=== PATIENT | female | born 1980 | race Caucasian/White ===

== ENCOUNTER → 2020-08-15 09:43 | Outpatient (BNVA) | payer MEDICAID, SELFPAY | PROVIDERS: PCP Nurse Practitioner; Referring Provider Nurse Practitioner; Visit Provider Urology | DX: N36.9 Urethral disorder, unspecified (principal); R82.71 Bacteriuria; N30.80 Other cystitis without hematuria; R33.9 Retention of urine, unspecified; N82.1 Other female urinary-genital tract fistulae; N39.46 Mixed incontinence; N81.9 Female genital prolapse, unspecified | CPT/HCPCS: 81003; 87077; 87086; 87184 ==

== ENCOUNTER 2020-09-29 14:56 | Emergency (ER) | payer MEDICAID, SELFPAY ==
[2020-09-29 15:37] VITALS: BP 120/80; PULSE 80; RESP 16; TEMP 36.6; O2SAT 98; BMI 36.0
--- NOTE | 2020-09-29 15:44 | ECG_ITS ---
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 Measurements Intervals [place] Rate: 75 P: 58 MS: 153 QRS: 55 QRSD: 88 T: 46 QT: 377 QTc: 421 Interpretive Statements SINUS RHYTHM No previous ECG available for comparison Electronically Signed On 09-29-2020 18:08:41 CDT by Favio Maza M.D. [id number] f
[2020-09-29 18:00] VITALS: BP 141/79; PULSE 72; RESP 15; TEMP 36.8; O2SAT 99
--- NOTE | 2020-09-29 18:09 | XRR_ITS ---
PROCEDURE INFORMATION: Exam: XR Chest Exam date and time: 09/29/2020 6:09 PM Age: 40 years old Clinical indication: Cough and shortness of breath; Additional info: CHARLENE Brandt TECHNIQUE: Imaging protocol: XR of the chest. Views: 1 view. COMPARISON: No relevant prior studies available. FINDINGS: Lungs: Unremarkable. No consolidation. Pleural spaces: Unremarkable. No pleural effusion. No pneumothorax. Heart/Mediastinum: Unremarkable. No cardiomegaly. Bones/joints: Unremarkable. XR/XR chest 1V portable [id number] IMPRESSION: No acute findings.
--- NOTE | 2020-09-29 18:09 | ECG_ITS ---
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 Measurements Intervals [place] Rate: 74 P: 60 KS: 132 QRS: 58 QRSD: 94 T: 49 QT: 376 QTc: 418 Interpretive Statements SINUS RHYTHM Nonspecific T wave changes in the anterior leads Compared to ECG 09/29/2020 15:56:26 No significant changes Electronically Signed On 10-01-2020 0:28:55 CDT by Marcelina Gilbert M.D. [id number] f
[2020-09-29 18:30] VITALS: BP 130/112; PULSE 91; RESP 17; O2SAT 100
--- NOTE | 2020-09-29 18:42 | W.ED.CHESTPA ---
HPI - Chest Pain General: Chief Complaint: Chest Pain Stated Complaint: Chest Pain Time Seen by Provider: 09/29/20 18:08 Source: patient and RN notes reviewed Mode of arrival: ambulatory Limitations: no limitations History of Present Illness: HPI narrative: Patient is a 40-year-old female who presents to the emergency department with chest pain that started about noon earlier today. Pain is in her upper chest and radiates to her back. She was seen for the same symptoms about a month ago and was evaluated discharged home. She denies any cardiac history. MD complaint: chest pain Onset (ago): hour(s) (6) Timing of current episode: constant Prior episodes: Yes Onset: during rest Pain location: substernal Pain radiation: back Severity: mild Quality: heaviness Relieving factors: nothing Exacerbating factors: nothing Associated symptoms: Deny abdominal pain, diaphoresis, dyspnea, fever(s), leg edema, nausea, palpitations, sense of impending doom, syncope or vomiting Treatment prior to arrival: none Review of Systems General: Reports: 10 or more systems reviewed and unremarkable except in HPI and below Const: Denies: fever(s) or diaphoresis Card: Denies: palpitations or syncope Resp: Denies: dyspnea GI: Denies: abdominal pain, nausea or vomiting PFS ED PFSH: Medical History Cystitis cystica Mixed urinary incontinence due to female genital prolapse Urethrovaginal fistula Family History Mother Hypertension Diabetes Social History Smoking and tobacco status: current every day smoker Alcohol intake: never Marital status: Current occupational status: employed History of recent travel: No Physical Exam Const: COMMON NORMALS: no acute distress, average body habitus, patient oriented x3, no limitations, healthy appearing, alert and well nourished HENMT: COMMON NORMALS: normocephalic, atraumatic and moist oral mucous membranes HEAD & SCALP: normocephalic and atraumatic Neck/C-Spine: COMMON NORMALS: no meningeal signs and no JVD Chest: COMMONS NORMALS: normal inspection of the chest and normal palpation of entire chest wall Resp: COMMON NORMALS: normal respiratory effort, No retractions, No use of accessory muscles, clear to auscultation bilaterally and percussion normal AUSCULTATION: clear to auscultation bilaterally PERCUSSION: percussion normal Cardio: COMMON NORMALS: no JVD, regular rate, regular rhythm, S1 normal heart sound present, S2 normal heart sound present, No gallops present (Cardio), No clicks present (Cardio), No murmurs present (Cardio), No rub (Cardio) and Peripheral pulses 2+ throughout RATE: regular rate RHYTHM: regular rhythm HEART SOUNDS: S1 normal heart sound present and S2 normal heart sound present PERIPHERAL PULSES: Peripheral pulses 2+ throughout GI: COMMON NORMALS: Normal to inspection, nondistended, normoactive bowel sounds present, Soft to palpation, non-tender, No hepatosplenomegaly present, no masses and no bruits PALPATION: Yes Soft to palpation and Yes No hepatosplenomegaly present Extremity: COMMON NORMALS: normal to inspection, full ROM, capillary refill normal, no calf tenderness and no pedal edema Neuro: COMMON NORMALS: patient oriented x3 SENSORIUM/ORIENTATION: Yes alert MENINGEAL SIGNS: Yes no meningeal signs Course Reevaluation(s): Reevaluation #1: Discussed her lab and imaging findings with her. Unremarkable. She is discharged with no new orders. Time: 22:16 Vital Signs: Vital signs: Vital Signs Temperature 98.4 F 09/29/20 18:45 Pulse Rate 76 09/29/20 22:27 Respiratory Rate 19 H 09/29/20 22:27 Blood Pressure 127/74 09/29/20 22:27 Pulse Oximetry 99 09/29/20 22:27 MDM - Chest Pain MDM Narrative: Medical decision making narrative: 40-year-old female patient who presents to the emergency department with chest pain. Evaluation in the emergency department is unremarkable with negative high-sensitivity troponin x2. Heart score is 0. She is discharged home with no new orders. Medical Records: Attestation: I reviewed the patient's medical records. Lab Data: Attestation: I reviewed the patient's lab results. Labs: Lab Results 09/29/20 09/29/20 09/29/20 Range/Units 18:57 18:57 18:57 WBC 16.8 H (4.0-10.0) 10^3/ uL RBC 4.90 (4.1-5.3) 10^6/u L Hgb 14.2 (11.5-15.3) g/dL Hct 44.7 (37.0-47.0) % MCV 91.2 (81-99) fL MCH 29.0 (28.0-34.0) pg MCHC 31.8 (30.0-36.0) g/dL RDW 15.4 H (12.1-15.1) % Plt Count 410 H (130-400) 10^3/c mm MPV 10.3 (7.4-10.4) fL Neut % (Auto) 46.6 % Lymph % (Auto) 46.5 % Rankin % (Auto) 4.9 % Eos % (Auto) 1.3 % Baso % (Auto) 0.4 % Neut # (Auto) 7.86 H (1.8-7.7) 10^3/u L Lymph # (Auto) 7.8 H (0.8-4.8) 10^3/u L Rankin # (Auto) 0.8 (0.2-0.9) 10^3/u L Eos # (Auto) 0.2 (0.0-0.8) 10^3/u L Baso # (Auto) 0.1 (0.0-0.1) 10^3/u L Nucleated RBC % (a uto) 0 % Nucleated RBCs # 0.0 /100WBC PT Cancelled INR Cancelled D-Dimer Cancelled Sodium Cancelled Potassium Cancelled Chloride Cancelled Carbon Dioxide Cancelled Anion Gap Cancelled BUN Cancelled Creatinine Cancelled GFR Calculation Cancelled Glucose Cancelled Calculated Osmolal ity Cancelled Calcium Cancelled Total Bilirubin Cancelled AST Cancelled ALT Cancelled Alkaline Phosphata se Cancelled Troponin T Baselin e Troponin T 120 Min little [place] tribe (0-10) ng/L Delta Troponin T (0-10) ABS# NT-Pro-B Natriuret Pep Cancelled Total Protein Cancelled Albumin Cancelled Globulin Cancelled Lipase Cancelled 09/29/20 09/29/20 09/29/20 Range/Units 18:57 19:21 19:21 WBC (4.0-10.0) 10^3/ uL RBC (4.1-5.3) 10^6/u L Hgb (11.5-15.3) g/dL Hct (37.0-47.0) % MCV (81-99) fL MCH (28.0-34.0) pg MCHC (30.0-36.0) g/dL RDW (12.1-15.1) % Plt Count (130-400) 10^3/c mm MPV (7.4-10.4) fL Neut % (Auto) % Lymph % (Auto) % Rankin % (Auto) % Eos % (Auto) % Baso % (Auto) % Neut # (Auto) (1.8-7.7) 10^3/u L Lymph # (Auto) (0.8-4.8) 10^3/u L Rankin # (Auto) (0.2-0.9) 10^3/u L Eos # (Auto) (0.0-0.8) 10^3/u L Baso # (Auto) (0.0-0.1) 10^3/u L Nucleated RBC % (a uto) % Nucleated RBCs # /100WBC PT 13.70 INR 1.02 D-Dimer <= 0.27 Sodium Potassium Chloride Carbon Dioxide Anion Gap BUN Creatinine GFR Calculation Glucose Calculated Osmolal ity Calcium Total Bilirubin AST ALT Alkaline Phosphata se Troponin T Baselin e Cancelled 6 Troponin T 120 Min [place] (0-10) ng/L Delta Troponin T (0-10) ABS# NT-Pro-B Natriuret Pep Total Protein Albumin Globulin Lipase 09/29/20 09/29/20 Range/Units 19:21 21:17 WBC (4.0-10.0) 10^3/ uL RBC (4.1-5.3) 10^6/u L Hgb (11.5-15.3) g/dL Hct (37.0-47.0) % MCV (81-99) fL MCH (28.0-34.0) pg MCHC (30.0-36.0) g/dL RDW (12.1-15.1) % Plt Count (130-400) 10^3/c mm MPV (7.4-10.4) fL Neut % (Auto) % Lymph % (Auto) % Rankin % (Auto) % Eos % (Auto) % Baso % (Auto) % Neut # (Auto) (1.8-7.7) 10^3/u L Lymph # (Auto) (0.8-4.8) 10^3/u L Rankin # (Auto) (0.2-0.9) 10^3/u L Eos # (Auto) (0.0-0.8) 10^3/u L Baso # (Auto) (0.0-0.1) 10^3/u L Nucleated RBC % (a uto) % Nucleated RBCs # /100WBC PT INR D-Dimer Sodium 141 Potassium 4.1 Chloride 108 H Carbon Dioxide 22 Anion Gap 15.1 BUN 9 Creatinine 0.6 GFR Calculation 109.6 Glucose 84 Calculated Osmolal ity 290 Calcium 8.7 Total Bilirubin 0.3 AST 12 ALT 9 Alkaline Phosphata se 78 Troponin T Baselin e Troponin T 120 Min little [place] 6.00 (0-10) ng/L Delta Troponin T 0 (0-10) ABS# NT-Pro-B Natriuret Pep 103 Total Protein 6.3 L Albumin 4.0 Globulin 2.3 Lipase 29 Imaging Data^: CXR: Attestation: I personally reviewed and interpreted this imaging study as follows: Radiologist's impression: [address] [id number] ReportSigned Patient: Aneesh Vasquez #: [id number]: 1980Acct#:[id number]/Sex: 40 / FADM Date: 09/29/20[facility]/Bed:Attending Dr: Ordering Provider/Ordering MD: Kay Holden MD, [facility] Date of Service: 09/29/20 Procedure(s): XR chest 1V portable [id number] Accession Number(s): [id number] Report Number: [id number] PROCEDURE INFORMATION: Exam: XR Chest Exam date and time: 09/29/2020 6:09 PM Age: 40 years old Clinical indication: Cough and shortness of breath; Additional info: Cp, SOB TECHNIQUE: Imaging protocol: XR of the chest. Views: 1 view. COMPARISON: No relevant prior studies available. FINDINGS: Lungs: Unremarkable. No consolidation. Pleural spaces: Unremarkable. No pleural effusion. No pneumothorax. Heart/Mediastinum: Unremarkable. No cardiomegaly. Bones/joints: Unremarkable. XR/XR chest 1V portable [id number] IMPRESSION: No acute findings. Dictated By:Andrez Gaspar DOSigned By:Andrez Gaspar DOSigned Date/Time:09/29/201DD/ EKG Data^: EKG 1: Attestation: I personally reviewed and interpreted this EKG as follows: EKG interpretation date: 09/29/20 EKG interpretation time: 18:41 Prior EKG tracings: not available for review Interpretation: Sinus rhythm. Heart rate 74 bpm. Normal axis. No ST changes. EKG 2: Attestation: I personally reviewed and interpreted this EKG as follows: EKG interpretation date: 09/29/20 EKG interpretation time: 20:17 Prior EKG tracings: available for review Interpretation: Sinus rhythm. Heart rate 78 bpm. Normal axis. No significant change from earlier today. No ST changes. Discharge Plan Discharge Patient Disposition: Home Clinical Impression: Non-cardiac chest pain Condition: Stable Prescriptions: Continued acetaminophen 500 mg capsule 500 mg PO Q6H PRN (Reason: Pain) RF: 0 ibuprofen 600 mg tablet 600 mg PO Q8H PRN (Reason: pain/fever) RF: 0 Zyrtec 10 mg capsule 10 mg PO DAILY PRN (Reason: Allergy Symptoms) RF: 0 diphenhydramine HCl [Benadryl] 25 mg capsule 25 mg PO TID PRN (Reason: unknown) RF: 0 gabapentin 300 mg capsule 300 mg PO TID RF: 0 cyclobenzaprine 10 mg tablet 10 mg PO BID PRN (Reason: muscle spasms) RF: 0 amoxicillin-pot clavulanate 875-125 mg tablet 1 tab PO BID Qty: 60 RF: 2 Prevacid 30 mg Capsule,Delayed Release(Dr/Ec) 30 mg PO DAILY RF: 0 Discharge Orders: Discharge ED (Routine); Ordered 09/29/20 Ordered By: Kay Holden Referrals: Walker Dumas, [employer] [Primary Care Provider] - 1-3 days Discharge Diet: Usual diet Discharge Activity: Increase activity as tolerated Patient Instructions: Noncardiac Chest Pain (ED) Activity Restrictions/Additional Instructions: Return for any new or worsening symptoms. Follow-up with your primary care provider within 3 days. Continue your home medications. Coding Level of Care Code ED Cane Weigher for Staci Bill
[2020-09-29 18:45] VITALS: BP 130/112; PULSE 74; RESP 16; TEMP 36.9; O2SAT 100
[2020-09-29 19:03] LABS: Basophils # 0.1 10^3/uL (0.0-0.1); Basophils % 0.4 %; Eosinophils # 0.2 10^3/uL (0.0-0.8); Eosinophils % 1.3 %; Hematocrit 44.7 % (37.0-47.0); Hemoglobin 14.2 g/dL (11.5-15.3); Lymphocytes # 7.8 10^3/uL (0.8-4.8); Lymphocytes % 46.5 %; Mean Corpuscular HGB Conc 31.8 g/dL (30.0-36.0); Mean Corpuscular Volume 91.2 fL (81-99); Mean Platelet Volume 10.3 fL (7.4-10.4); Monocytes # 0.8 10^3/uL (0.2-0.9); Monocytes % 4.9 %; Neutrophils # 7.86 10^3/uL (1.8-7.7); Neutrophils % 46.6 %; Nucleated Red Blood Cells % 0 %; Platelet Count 410 10^3/cmm (130-400); Positive M 1; Red Cell Distribution Width 15.4 % (12.1-15.1); White Blood Count 16.8 10^3/uL (4.0-10.0)
[2020-09-29 19:24] LABS: Slide Review Slide Review Perform
[2020-09-29 19:47] VITALS: BP 122/76; PULSE 83; RESP 21; O2SAT 100
[2020-09-29 19:52] LABS: INR 1.02 (0.8-1.2)
[2020-09-29 19:55] LABS: D Dimer <= 0.27 ug/mIFEU (0-0.59)
[2020-09-29 20:01] LABS: Troponin(5th) Baseline 6 ng/L (0-10)
[2020-09-29 20:09] LABS: Alanine Aminotransferase 9 U/L (0-33); Alkaline Phosphatase 78 IU/L (35-105); Anion Gap 15.1 (5-19); Aspartate Amino Transferase 12 U/L (0-32); Blood Urea Nitrogen 9 mg/dL (6-20); Calcium 8.7 mg/dL (8.5-10.5); Carbon Dioxide 22 mmol/L (22-29); Chloride 108 mmol/L (98-107); Globulin 2.3 g/dL (1.3-4.6); Glomerular Filtration Rate 109.6 mL/min (90-130); Glucose 84 mg/dL (65-115); Lipase 29 U/L (13-60); NT Pro B Type Natriuretic Pept 103 pg/mL (0-125); Osmolality Calculated 290 mOsm/kg (285-295); Potassium 4.1 mmol/L (3.5-5.1); Sodium 141 mmol/L (136-145); Total Bilirubin 0.3 mg/dL (0.15-1.2); Total Protein 6.3 g/dL (6.6-8.7)
--- NOTE | 2020-09-29 20:09 | ECG_ITS ---
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 Measurements Intervals [place] Rate: 78 P: 53 ME: 159 QRS: 55 QRSD: 92 T: 42 QT: 382 QTc: 436 Interpretive Statements SINUS RHYTHM Compared to ECG 09/29/2020 15:56:26 No significant changes Electronically Signed On 10-01-2020 0:34:24 CDT by Marcelina Gilbert M.D. [id number]
[2020-09-29 22:00] LABS: Troponin 5 2HR Delta 0 ABS# (0-10)
[2020-09-29 22:27] VITALS: BP 127/74; PULSE 76; RESP 19; O2SAT 99
== END 2020-09-29 22:28 | disposition home or self-care (01) ==
PROVIDERS: Emergency Provider Family Medicine; PCP Nurse Practitioner
DX: R07.89 Other chest pain (principal); F17.210 Nicotine dependence, cigarettes, uncomplicated
CPT/HCPCS: 71045; 80053; 83690; 83880; 84484; 85025; 85378; 85610; 93005; 99284

== ENCOUNTER 2020-10-29 23:09 | Emergency (ER) | payer MEDICAID, SELFPAY ==
[2020-10-29 23:13] VITALS: BP 125/79; PULSE 94; RESP 18; TEMP 37.3; O2SAT 97; BMI 34.7
--- NOTE | 2020-10-29 23:39 | W.ED.SKABFB ---
HPI - Skin/Abscess/Foreign Bdy General: Chief complaint: Skin/Abscess/Foreign Body Stated complaint: Spider Bite Time Seen by Provider: 10/29/20 23:39 History of Present Illness: HPI narrative: 40-year-old female comes in with a insect bite to her right inner thigh. Patient reports increased redness and spreading of the redness to the area. Patient was concerned that it may be a insect bite such as a spider. Patient denies any fever or pain. Review of Systems General: Reports: 10 or more systems reviewed and unremarkable except in HPI and below Skin/Breast: Reports: changing lesions PFSH ED PFSH: Medical History (Reviewed 09/29/20 @ 22:36 by Kay Holden MD, [facility] [place]) Cystitis cystica Mixed urinary incontinence due to female genital prolapse Urethrovaginal fistula Family History (Reviewed 09/29/20 @ 22:36 by Kay Holden MD, [facility] [place]) Mother Hypertension Diabetes Social History (Reviewed 09/29/20 @ 22:36 by Kay Holden MD, [facility] [place]) Smoking and tobacco status: current every day smoker Alcohol intake: never Marital status: Current occupational status: employed History of recent travel: No Physical Exam Const: COMMON NORMALS: no acute distress and patient oriented x3 GENERAL APPEARANCE: cooperative HENMT: COMMON NORMALS: normocephalic and Normal external nose present HEAD & SCALP: normal to inspection and normocephalic NOSE: Normal external nose present MOUTH: Normal oral and palatal mucosa present Eye: GENERAL EYE: appearance normal, both eyes and all related structures Neck/C-Spine: COMMON NORMALS: full ROM Chest: COMMONS NORMALS: normal inspection of the chest Resp: COMMON NORMALS: normal respiratory effort EFFORT & INSPECTION: Yes able to speak in complete sentences Cardio: COMMON NORMALS: regular rate and regular rhythm RATE: regular rate RHYTHM: regular rhythm GI: COMMON NORMALS: non-tender Extremity: COMMON NORMALS: normal to inspection Neuro: COMMON NORMALS: patient oriented x3 and moves all extremities Psych: COMMON NORMALS: mental status grossly normal and cooperative Skin: NARRATIVE SKIN EXAM: 2 cm ecchymotic/erythematous lesion to the right inner thigh. Course Vital Signs: Vital signs: Vital Signs Temperature 99.2 F 10/29/20 23:13 Pulse Rate 94 10/29/20 23:13 Respiratory Rate 18 10/29/20 23:13 Blood Pressure 125/79 10/29/20 23:13 Pulse Oximetry 97 10/29/20 23:13 MDM - Skin/Abscess/Foreign Bdy MDM Narrative: Medical decision making narrative: 40-year-old female comes in with a changing lesion to the right inner thigh. On exam there is a 2 cm area of ecchymosis with mild redness to the inner thigh. No induration or fluctuant masses noted. Differential diagnosis includes folliculitis, abscess, local reaction to insect bite. Will place patient on some triamcinolone and Bactrim to cover for a probable insect bite. Reviewed this with patient who agreed to plan and treatment. Discharge Plan Discharge Patient Disposition: Home Clinical Impression: Infected insect bite Qualifiers: Encounter type: initial encounter Qualified Code(s): W57.XXXA - Bitten or stung by nonvenomous insect and other nonvenomous arthropods, initial encounter Condition: Stable Prescriptions: New Bactrim DS 800-160 mg tablet 1 tab PO DAILY 7 Days Qty: 14 RF: 0 triamcinolone acetonide 0.1 % cream 1 applic topical BID Qty: 15 RF: 0 No Action acetaminophen 500 mg capsule 500 mg PO Q6H PRN (Reason: Pain) RF: 0 ibuprofen 600 mg tablet 600 mg PO Q8H PRN (Reason: pain/fever) RF: 0 Zyrtec 10 mg capsule 10 mg PO DAILY PRN (Reason: Allergy Symptoms) RF: 0 diphenhydramine HCl [Benadryl] 25 mg capsule 25 mg PO TID PRN (Reason: unknown) RF: 0 gabapentin 300 mg capsule 300 mg PO TID RF: 0 cyclobenzaprine 10 mg tablet 10 mg PO BID PRN (Reason: muscle spasms) RF: 0 amoxicillin-pot clavulanate 875-125 mg tablet 1 tab PO BID Qty: 60 RF: 2 Prevacid 30 mg Capsule,Delayed Release(Dr/Ec) 30 mg PO DAILY RF: 0 Discharge Orders: Discharge ED (Routine); Ordered 10/29/20 Ordered By: Aidan Molina Discharge Diet: Usual diet Discharge Activity: Increase activity as tolerated Patient Instructions: Insect Bite or Sting (ED), Opioid Safety Activity Restrictions/Additional Instructions: Follow-up with primary care. Monitor area for worsening symptoms. Return to the ER for new concerns. Coding Level of Care Code ED Photonics Technician for Staci Bill
[2020-10-30] MEDS: sulfamethoxazole-trimeth DS 160-800 mg Tablet 1 TAB PO (00:07)
[2020-10-30] MEDS: triamcinolone 0.1% cream 15 gm 1 APPLIC TOPICAL (00:13)
== END 2020-10-30 00:14 | disposition home or self-care (01) ==
PROVIDERS: Emergency Provider Nurse Practitioner Family
DX: L98.9 Disorder of the skin and subcutaneous tissue, unspecified (principal); F17.200 Nicotine dependence, unspecified, uncomplicated
CPT/HCPCS: 99283

== ENCOUNTER 2020-11-13 21:18 | Emergency (ER) | payer MEDICAID, SELFPAY ==
--- NOTE | 2020-11-13 21:27 | XRR_ITS ---
PROCEDURE INFORMATION: Exam: XR Chest Exam date and time: 11/13/2020 9:27 PM Age: 40 years old Clinical indication: Left-sided; Patient HX: Sudden onset chest pain tonight radiating to left shoulder; Additional info: Cp TECHNIQUE: Imaging protocol: XR of the chest. Views: 1 view. Total images: 1 COMPARISON: CR (CHEST, ) 09/29/2020 6:26 PM FINDINGS: Lungs: No visible active interstitial or alveolar airspace disease. Pleural spaces: Unremarkable. No pleural effusion. No pneumothorax. Heart/Mediastinum: Unremarkable. No cardiomegaly. Bones/joints: Unremarkable. Soft tissues: Heavy body habitus. XR/XR chest 1V portable [id number] IMPRESSION: Nonacute.
[2020-11-13 21:30] VITALS: BP 139/84; PULSE 99; RESP 16; TEMP 36.9; O2SAT 96; BMI 34.7
--- NOTE | 2020-11-13 21:54 | ED_ITS ---
HPI - Chest Pain General: Chief Complaint: Chest Pain Stated Complaint: chest pain left shoulder Time Seen by Provider: 11/13/20 21:46 Source: patient Mode of arrival: ambulatory Limitations: no limitations History of Present Illness: HPI narrative: 40-year-old female states she was eating roughly an hour ago when she stood up she had a sudden onset of very sharp chest pain in the center of her chest. States it also radiated to her left shoulder. She states that since then the pain is improved and is currently 2 out of 10. Denies any nausea or vomiting. She denies any worsening improving factors. Denies any cough or fever. Associated symptoms: Deny abdominal pain, dyspnea, fever(s), nausea or vomiting Review of Systems Const: Denies: fever(s), chills, body aches or change in appetite Eyes: Denies: blurry vision or eye discomfort ENMT: Denies: throat pain or dental pain Card: Reports: chest pain Resp: Denies: dyspnea GI: Denies: abdominal pain, nausea, vomiting or diarrhea : Denies: dysuria Musc: Denies: neck pain or back pain Skin/Breast: Denies: rash Neuro: Denies: headache(s) Psych: Denies: depression Abel/Lymph: Denies: easy bruising All/Imm: Denies: urticaria PFSH ED PFSH: Medical History Cystitis cystica Mixed urinary incontinence due to female genital prolapse Urethrovaginal fistula Family History Mother Hypertension Diabetes Social History Smoking and tobacco status: current every day smoker Alcohol intake: never Marital status: Current occupational status: employed History of recent travel: No Female Reproductive History: Date of last menstrual period: 11/02/20 Physical Exam Const: COMMON NORMALS: no acute distress, patient oriented x3 and healthy appearing HENMT: COMMON NORMALS: normocephalic and atraumatic HEAD & SCALP: normocephalic and atraumatic Eye: COMMON NORMALS: Equal, round and reactive pupils present and EOMs intact bilaterally PUPIL: Yes Equal, round and reactive pupils present Neck/C-Spine: COMMON NORMALS: full ROM and supple Chest: COMMONS NORMALS: normal inspection of the chest and normal palpation of entire chest wall Resp: COMMON NORMALS: normal respiratory effort, No retractions, No use of accessory muscles and clear to auscultation bilaterally AUSCULTATION: clear to auscultation bilaterally Cardio: COMMON NORMALS: regular rate, regular rhythm and No murmurs present (Cardio) RATE: regular rate RHYTHM: regular rhythm GI: COMMON NORMALS: Normal to inspection, nondistended, normoactive bowel sounds present, Soft to palpation, non-tender and no masses PALPATION: Yes Soft to palpation Extremity: COMMON NORMALS: normal to inspection and full ROM Neuro: COMMON NORMALS: patient oriented x3, moves all extremities and no focal motor deficits Psych: COMMON NORMALS: mental status grossly normal, Normal thought process present and cooperative THOUGHT PROCESS: Normal thought process present Skin: COMMON NORMALS: no rashes or lesions noted and no wounds GENERAL SKIN EXAM: no rashes or lesions noted Course Vital Signs: Vital signs: Vital Signs Temperature 98.4 F 11/13/20 21:30 Pulse Rate 70 11/14/20 01:24 Respiratory Rate 17 11/14/20 01:24 Blood Pressure 119/73 11/14/20 01:24 Pulse Oximetry 98 11/14/20 01:24 MDM - Chest Pain MDM Narrative: Medical decision making narrative: Patient presents here with chest pain that is atypical in nature. Patient is pain-free currently and initial repeat troponins and EKGs are normal. She has no signs of acute coronary syndrome. White count is elevated but she states her white count has been running anywhere from 16-18 and they are working her up for autoimmune diseases. She has no signs of infection here. She is to follow-up with PCP and return if she worsens. She understands agrees to plan. Lab Data: Labs: Lab Results 11/13/20 11/13/20 11/13/20 Range/Units 21:53 21:53 21:53 WBC 16.1 H (4.0-10.0) 10^3/ uL RBC 4.65 (4.1-5.3) 10^6/u L Hgb 13.6 (11.5-15.3) g/dL Hct 42.3 (37.0-47.0) % MCV 91.0 (81-99) fl MCH 29.2 (28.0-34.0) pg MCHC 32.2 (30.0-36.0) g/dL RDW 14.6 (12.1-15.1) % Plt Count 418 H (130-400) 10^3/c mm MPV 9.8 (7.4-10.4) fL Neut % (Auto) 56.7 % Lymph % (Auto) 34.2 % [place] % (Auto) 6.8 % Eos % (Auto) 1.8 % Baso % (Auto) 0.3 % Neut # (Auto) 9.14 H (1.8-7.7) 10^3/u L Lymph # (Auto) 5.5 H (0.8-4.8) 10^3/u L [place] # (Auto) 1.1 H (0.2-0.9) 10^3/u L Eos # (Auto) 0.3 (0.0-0.8) 10^3/u L Baso # (Auto) 0.1 (0.0-0.1) 10^3/u L Nucleated RBC % (a uto) 0 % Nucleated RBCs # 0.0 /100WBC Sodium 139 (136-145) mmol/L Potassium 4.0 (3.5-5.1) mmol/L Chloride 104 (98-107) mmol/L Carbon Dioxide 25 (22-29) mmol/L Anion Gap 14.0 (5-19) BUN 12 (6-20) mg/dL Creatinine 0.7 (0.5-0.9) mg/dL GFR Calculation 91.8 (90-130) mL/min Glucose 101 (65-115) mg/dL Calculated Osmolal ity 288 (285-295) mOsm/k g Calcium 9.1 (8.5-10.5) mg/dL Total Bilirubin 0.2 (0.15-1.2) mg/dL AST 22 (0-32) U/L ALT 17 (0-33) U/L Alkaline Phosphata se 70 (35-105) IU/L Troponin T Baselin e 6 (0-10) ng/L Troponin T 120 Min qagan tayagungin (0-10) ng/L Delta Troponin T (0-10) ABS# Total Protein 6.5 L (6.6-8.7) g/dL Albumin 4.2 (3.5-5.2) g/dL Globulin 2.3 (1.3-4.6) g/dL Lipase 50 (13-60) U/L 11/13/20 11/13/20 Range/Units 21:53 23:46 WBC (4.0-10.0) 10^3/ uL RBC (4.1-5.3) 10^6/u L Hgb (11.5-15.3) g/dL Hct (37.0-47.0) % MCV (81-99) fl MCH (28.0-34.0) pg MCHC (30.0-36.0) g/dL RDW (12.1-15.1) % Plt Count (130-400) 10^3/c mm MPV (7.4-10.4) fL Neut % (Auto) % Lymph % (Auto) % [place] % (Auto) % Eos % (Auto) % Baso % (Auto) % Neut # (Auto) (1.8-7.7) 10^3/u L Lymph # (Auto) (0.8-4.8) 10^3/u L [place] # (Auto) (0.2-0.9) 10^3/u L Eos # (Auto) (0.0-0.8) 10^3/u L Baso # (Auto) (0.0-0.1) 10^3/u L Nucleated RBC % (a uto) % Nucleated RBCs # /100WBC Sodium (136-145) mmol/L Potassium (3.5-5.1) mmol/L Chloride (98-107) mmol/L Carbon Dioxide (22-29) mmol/L Anion Gap (5-19) BUN (6-20) mg/dL Creatinine (0.5-0.9) mg/dL GFR Calculation (90-130) mL/min Glucose (65-115) mg/dL Calculated Osmolal ity (285-295) mOsm/k g Calcium (8.5-10.5) mg/dL Total Bilirubin (0.15-1.2) mg/dL AST (0-32) U/L ALT (0-33) U/L Alkaline Phosphata se (35-105) IU/L Troponin T Baselin e (0-10) ng/L Troponin T 120 Min qagan [place] 6.00 (0-10) ng/L Delta Troponin T 0 (0-10) ABS# Total Protein (6.6-8.7) g/dL Albumin (3.5-5.2) g/dL Globulin (1.3-4.6) g/dL Lipase Cancelled (13-60) U/L Imaging Data^: CXR: Attestation: I personally reviewed and interpreted this imaging study as follows: Radiologist's impression: [id number] [address] XRay Report Signed Patient: Sarai Vasquez Unit #: [id number] : 1980 Age/Sex: 40 / F ADM Date: 11/13/20 Loc: ER Room/Bed: Attending Dr: Ordering Provider/Ordering MD: Ana Anderson MD Date of Service: 11/13/20 Procedure(s): XR chest 1V portable [id number] Accession Number(s): [id number] Report Number: [id number] PROCEDURE INFORMATION: Exam: XR Chest Exam date and time: 11/13/2020 9:27 PM Age: 40 years old Clinical indication: Left-sided; Patient HX: Sudden onset chest pain tonight radiating to left shoulder; Additional info: Cp TECHNIQUE: Imaging protocol: XR of the chest. Views: 1 view. Total images: 1 COMPARISON: CR (CHEST, ) 09/29/2020 6:26 PM FINDINGS: Lungs: No visible active interstitial or alveolar airspace disease. Pleural spaces: Unremarkable. No pleural effusion. No pneumothorax. Heart/Mediastinum: Unremarkable. No cardiomegaly. Bones/joints: Unremarkable. Soft tissues: Heavy body habitus. XR/XR chest 1V portable [id number] IMPRESSION: Nonacute. Dictated By: Sandoval Chavarria Signed By: Sandoval Chavarria Signed Date/Time: 11/13/202201 DD/ 00 EKG Data^: EKG 1: Attestation: I personally reviewed and interpreted this EKG as follows: EKG interpretation date: 11/13/20 EKG interpretation time: 21:34 Interpretation: nsr hr [address] or t wave abnormalities qrs 85 qtc 398 EKG 2: Attestation: I personally reviewed and interpreted this EKG as follows: EKG interpretation date: 11/14/20 EKG interpretation time: 00:45 Interpretation: nsr hr [address] or t wave abnormalities qrs 94 qtc 415 Discharge Plan Discharge Patient Disposition: Home Clinical Impression: Chest pain Qualifiers: Chest pain type: unspecified Qualified Code(s): R07.9 - Chest pain, unspecified Condition: Stable Prescriptions: No Action acetaminophen 500 mg capsule 500 mg PO Q6H PRN (Reason: Pain) RF: 0 ibuprofen 600 mg tablet 600 mg PO Q8H PRN (Reason: pain/fever) RF: 0 Zyrtec 10 mg capsule 10 mg PO DAILY PRN (Reason: Allergy Symptoms) RF: 0 diphenhydramine HCl [Benadryl] 25 mg capsule 25 mg PO TID PRN (Reason: unknown) RF: 0 gabapentin 300 mg capsule 300 mg PO TID RF: 0 cyclobenzaprine 10 mg tablet 10 mg PO BID PRN (Reason: muscle spasms) RF: 0 amoxicillin-pot clavulanate 875-125 mg tablet 1 tab PO BID Qty: 60 RF: 2 Prevacid 30 mg Capsule,Delayed Release(Dr/Ec) 30 mg PO DAILY RF: 0 triamcinolone acetonide 0.1 % cream 1 applic topical BID Qty: 15 RF: 0 Discharge Orders: Discharge ED (Routine); Ordered 11/14/20 Ordered By: Ana Anderson Referrals: Walker Dumas MUSIC THERAPY TEACHER [Primary Care Provider] - 1-3 days Discharge Diet: Advance as tolerated Discharge Activity: Resume usual activity Patient Instructions: Chest Pain (ED) Coding Level of Care Code ED Regional Loss Prevention Manager for Chg Fwd Exam Comprehensive
[2020-11-13 21:56] VITALS: BP 138/82; PULSE 88; RESP 18; O2SAT 98
[2020-11-13 21:59] LABS: Basophils # 0.1 10^3/uL (0.0-0.1); Basophils % 0.3 %; Eosinophils # 0.3 10^3/uL (0.0-0.8); Eosinophils % 1.8 %; Hematocrit 42.3 % (37.0-47.0); Hemoglobin 13.6 g/dL (11.5-15.3); Lymphocytes # 5.5 10^3/uL (0.8-4.8); Lymphocytes % 34.2 %; Mean Corpuscular HGB Conc 32.2 g/dL (30.0-36.0); Mean Corpuscular Hemoglobin 29.2 pg (28.0-34.0); Mean Platelet Volume 9.8 fL (7.4-10.4); Monocytes # 1.1 10^3/uL (0.2-0.9); Monocytes % 6.8 %; Neutrophils # 9.14 10^3/uL (1.8-7.7); Neutrophils % 56.7 %; Nucleated Red Blood Cells % 0 %; Platelet Count 418 10^3/cmm (130-400); Red Blood Count 4.65 10^6/uL (4.1-5.3); Red Cell Distribution Width 14.6 % (12.1-15.1); White Blood Count 16.1 10^3/uL (4.0-10.0)
[2020-11-13] MEDS: ondansetron 2 mg/ML SDV 2 mL 4 MG IVP (22:04)
[2020-11-13 22:08] VITALS: RESP 18; O2SAT 98
[2020-11-13] MEDS: morphine 4 mg/mL SDV 1 mL IVP (22:08)
[2020-11-13 22:17] LABS: Troponin(5th) Baseline 6 ng/L (0-10)
[2020-11-13 22:21] LABS: Alanine Aminotransferase 17 U/L (0-33); Albumin Level 4.2 g/dL (3.5-5.2); Alkaline Phosphatase 70 IU/L (35-105); Aspartate Amino Transferase 22 U/L (0-32); Blood Urea Nitrogen 12 mg/dL (6-20); Calcium 9.1 mg/dL (8.5-10.5); Carbon Dioxide 25 mmol/L (22-29); Chloride 104 mmol/L (98-107); Globulin 2.3 g/dL (1.3-4.6); Glomerular Filtration Rate 91.8 mL/min (90-130); Glucose 101 mg/dL (65-115); Lipase 50 U/L (13-60); Osmolality Calculated 288 mOsm/kg (285-295); Sodium 139 mmol/L (136-145); Total Bilirubin 0.2 mg/dL (0.15-1.2); Total Protein 6.5 g/dL (6.6-8.7)
--- NOTE | 2020-11-13 23:28 | ECG_ITS ---
[facility] Test Date: 2020-11-14 Pat Name: Sarai Vasquez Department: Room: Gender: Female Brim Flexer: : 1980 Requested By: Ana Anderson Order Number: [id number] Joyce MD: Marcelina Gilbert M.D. Measurements Intervals [place] Rate: 68 P: 64 WV: 146 QRS: 64 QRSD: 94 T: 62 QT: 397 QTc: 425 Interpretive Statements SINUS RHYTHM Compared to ECG 09/29/2020 20:17:16 No significant changes Electronically Signed On 11-14-2020 13:08:21 CDT by Marcelina Gilbert M.D. [id number]
[2020-11-13 23:35] VITALS: BP 120/87; PULSE 75; RESP 21; O2SAT 99
[2020-11-14 00:39] LABS: Troponin 5 2HR Delta 0 ABS# (0-10)
[2020-11-14 01:00] VITALS: BP 119/73; PULSE 69; RESP 27; O2SAT 97
[2020-11-14 01:24] VITALS: BP 119/73; PULSE 70; RESP 17; O2SAT 98
== END 2020-11-14 01:25 | disposition home or self-care (01) ==
PROVIDERS: Emergency Provider Emergency Medicine; PCP Nurse Practitioner
DX: R07.9 Chest pain, unspecified (principal); F17.200 Nicotine dependence, unspecified, uncomplicated
CPT/HCPCS: 36415; 71045; 80053; 83690; 84484; 85025; 93005; 96374; 96375; 99284; J2270; J2405

== ENCOUNTER 2020-12-12 12:33 | Outpatient (CLI) | payer MEDICAID, SELFPAY ==
--- NOTE | 2020-12-12 13:01 | MM_ITS ---
WS: [id number] BILATERAL DIGITAL DIAGNOSTIC MAMMOGRAM MAMMOGRAPHY WITH CAD CLINICAL INFORMATION: DISORDER OF BREAST HISTORY: Clear to white discharge left breast COMPARISON: None. TECHNIQUE: Bilateral CC, MLO, and ML views. FINDINGS: Scattered fibroglandular densities bilaterally. Palpable marker at the left areola. No visualized mammographic lesions. Ultrasound left breast is pen ding. 5 mm intramammary lymph node right breast. 8mm asymmetry upper outer right breast best visualized on the MLO view. Recommend spot compression views and ultrasound for further evaluation. ULTRASOUND BREAST LEFT TECHNIQUE: Ultrasound left breast focused area of concern. CLINICAL INFORMATION: DISORDER OF BREAST COMPARISON: None. FINDINGS: Ultrasound left breast circumferential about the areola. No visualized subareolar cystic or solid mas s. No intraductal lesions. No ductal dilatation. No suspicious findings. MM/[place] [id number] IMPRESSION: BI-RADS: 0-Incomplete: Need additional imaging evaluation FOLLOW UP: Need Additional Imaging Recommend right breast diagnostic mammography and ultrasound for further evalua tion of the asymmetric density upper outer right breast
--- NOTE | 2020-12-12 13:34 | US_ITS ---
WS: [id number] BILATERAL DIGITAL DIAGNOSTIC MAMMOGRAM MAMMOGRAPHY WITH CAD CLINICAL INFORMATION: DISORDER OF BREAST HISTORY: Clear to white discharge left breast COMPARISON: None. TECHNIQUE: Bilateral CC, MLO, and ML views. FINDINGS: Scattered fibroglandular densities bilaterally. Palpable marker at the left areola. No visualized mammographic lesions. Ultrasound left breast is pen ding. 5 mm intramammary lymph node right breast. 8mm asymmetry upper outer right breast best visualized on the MLO view. Recommend spot compression views and ultrasound for further evaluation. ULTRASOUND BREAST LEFT TECHNIQUE: Ultrasound left breast focused area of concern. CLINICAL INFORMATION: DISORDER OF BREAST COMPARISON: None. FINDINGS: Ultrasound left breast circumferential about the areola. No visualized subareolar cystic or solid mas s. No intraductal lesions. No ductal dilatation. No suspicious findings. US/US breast LT limited* [id number] IMPRESSION: BI-RADS: 0-Incomplete: Need additional imaging evaluation FOLLOW UP: Need Additional Imaging Recommend right breast diagnostic mammography and ultrasound for further evalua tion of the asymmetric density upper outer right breast
== END 2020-12-12 12:34 | disposition home or self-care (01) ==
LOC: RADSHAW 12:40
PROVIDERS: PCP Nurse Practitioner; Visit Provider Nurse Practitioner
DX: N64.89 Other specified disorders of breast (principal)
CPT/HCPCS: 76642; 77066

== ENCOUNTER 2021-01-09 08:00 | Outpatient (CLI) | payer MEDICAID, SELFPAY ==
--- NOTE | 2021-01-09 08:08 | MM_ITS ---
WS: [id number] RIGHT DIGITAL MAMMOGRAPHY WITH CAD CLINICAL INFORMATION: INCONCLUSIVE MAMMOGRAM COMPARISON: December 12, 2020 TECHNIQUE: 4 views of the right breast were obtained. FINDINGS: Scattered fibroglandular densities of the right breast. Persistent 8 mm asymmetry upper outer right b reast. Adjacent 5 mm intramammary lymph node. Ultrasound is pending. MM/[place] [id number] IMPRESSION: BI-RADS: 0-Incomplete: Need additional imaging evaluation FOLLOW UP: Need Additional Imaging ULTRASOUND IS PENDING.
--- NOTE | 2021-01-09 08:08 | US_ITS ---
WS: [id number] Right breast ultrasound, 01/09/2021 Clinical Data: INCONCLUSIVE MAMMOGRAM Comparison: Right breast mammogram, 01/09/2021 Findings: At the 10:00 position 3 cm from the nipple there is a complex cyst measuring 0.51 x 0 6.62 x 0.72 cm with a smooth border and internal echoes. No calcifications are associated with this area. 2 cm from the nipple there is a complex cyst measuring 0.35 x 0.52 x 0.76 cm. At the 11:00 position there are 2 intramedullary lymph nodes, in the axilla, one measuring 1.72 x 0.7 4 x 2.94 cm and the other 0.85 x 0.88 x 1.16 cm. US/US breast RT limited* [id number] Impression: 1. Complex cysts, 2 of them, at the 10:00 position 2 and 3 cm from the nipple. 2. 2 intramammary lymph nodes in the 11:00 position. 3. Recommend return to annual screening mammograms. BIRADS: 2-Benign FOLLOW UP: 1 Year Follow-up
== END 2021-01-09 08:01 | disposition home or self-care (01) ==
LOC: RADSHAW 08:04
PROVIDERS: PCP Nurse Practitioner; Visit Provider Nurse Practitioner
DX: R92.2 Inconclusive mammogram (principal); N60.01 Solitary cyst of right breast
CPT/HCPCS: 76642; 77065

== ENCOUNTER → 2021-01-26 11:12 | Outpatient (BNVA) | payer MEDICAID, SELFPAY | PROVIDERS: PCP Nurse Practitioner; Visit Provider Internal Medicine | DX: Z01.812 Encounter for preprocedural laboratory examination (principal); Z20.822 Contact with and (suspected) exposure to COVID-19 | CPT/HCPCS: 81003; 87635 ==

== ENCOUNTER 2021-02-02 08:08 | Day surgery (SDC) | payer MEDICAID, SELFPAY ==
[2021-01-28 14:35] VITALS: BMI 36.0
--- NOTE | 2021-02-02 07:55 | W.PM.OPSFHP ---
Same Day Surgery H&P Indication for Procedure/HPI DATE OF PROCEDURE: February 02, 2021 CHIEF COMPLAINT/INDICATIONFOR SURGICAL PROCEDURE: Chronic reflux and a history of polyp PREOP DIAGNOSIS: Chronic reflux and history of polyps PLANNED PROCEDRUE: Operation Date: 02/02/21 09:45 Proposed Procedures p EGD/Colon 04748 R19.8(Not Applicable) - Killian Gill MD s Colonoscopy 66076 Z86.010(Not Applicable) - Killian Gill MD Medications/Allergies* Home Medications Medication Instructions Recorded Confirmed Type acetaminophen 500 mg capsule 500 mg PO Q6H PRN 08/15/20 01/28/21 History cetirizine 10 mg capsule 10 mg PO DAILY PRN 08/15/20 01/28/21 History diphenhydramine HCl 25 mg capsule 25 mg PO TID PRN 08/15/20 01/28/21 History ibuprofen 600 mg tablet 600 mg PO Q8H PRN 08/15/20 01/26/21 History famotidine 40 mg tablet 40 mg PO BID 01/22/21 01/28/21 History gabapentin 300 mg capsule 600 mg PO TID cap 01/22/21 01/26/21 History omeprazole 40 mg capsule,delayed 40 mg PO BID 01/22/21 01/26/21 History release albuterol sulfate 90 mcg/actuation 2 puff INHALATION Q6H PRN 01/26/21 01/28/21 History aerosol inhaler cholecalciferol (vitamin D3) 625 625 mcg PO .weekly cap 01/26/21 01/28/21 History mcg (25,000 unit) capsule duloxetine 30 mg capsule,delayed 30 mg PO DAILY 01/26/21 01/28/21 History release fluticasone 250 mcg-salmeterol 50 1 inh INHALATION BID 01/26/21 01/28/21 History mcg/dose blistr powdr for inhalation Allergies/Adverse Reactions Allergy/AdvReac Type Severity Reaction Status Date / Time codeine Allergy Unknown Verified 01/26/21 09:00 tramadol Allergy Unknown Verified 01/26/21 09:00 SHELL FISH Allergy DIARRHEA, Uncoded 01/26/21 09:00 NAUSEA, ITCHY THROAT, SWEATING Pertinent History/Comorbid Conditions* Medical History (Updated 01/23/21 @ 11:49 by Lorna Mack MD) Cystitis cystica Dyspareunia Generalized anxiety disorder GERD (gastroesophageal reflux disease) Microscopic hematuria Mixed urinary incontinence due to female genital prolapse Ophthalmoplegic migraine, not intractable Periurethral cyst PTSD (post-traumatic stress disorder) [place]'s gland abscess [place] gland removed--04/10/2019 Urethrovaginal fistula Urinary frequency Urinary urgency Surgical History (Updated 01/22/21 @ 14:34 by Lorna Mack MD) History of tonsillectomy History of tubal ligation Family History (Updated 01/22/21 @ 14:15 by Verito Pearce LPN) Diabetes Mother Grandmother Maternal CAD (coronary artery disease) Grandfather Maternal Cancer Mother lung and bone cancer Grandfather Paternal--brain cancer twice Father bladder cancer Hypertension Mother Grandfather Maternal Stroke Grandfather, Onset Age: 50 Maternal Denies family history of Clotting disorder Chronic kidney disease (CKD) Bleeding disorder Social History Alcohol intake: never Marital status: Current occupational status: unemployed History of recent travel: No Pertinent Exam Findings alert, oriented x 3, clear to auscultation bilaterally, regular rate & rhythm, operative site marked and procedure specific exam findings Recommendations Surgery/Procedure today Coding Level of Care Code Acute Floral Design Teacher for Garyg Landy
[2021-02-02 09:08] VITALS: BP 155/79; PULSE 77; RESP 16; TEMP 36.4; O2SAT 100
[2021-02-02] MEDS: sodium chloride 0.9% 1,000 ML 30 ML IV (09:20)
--- NOTE | 2021-02-02 09:29 | P.ANESASSM_ITS ---
Pre-Anesthetic Assessment Pre-Anesthetic Assessment: Height/Weight: Height 1.57 m Weight 89.358 kg Temp Pulse Resp BP Pulse Ox 97.5 F L 77 16 155/79 100 02/02/21 09:08 02/02/21 09:08 02/02/21 09:08 02/02/21 09:08 02/02/21 09:08 Preop Diagnosis: Gerd, Polyps Proposed Procedure: Operation Date: 02/02/21 09:45 Proposed Procedures p EGD/Colon 46553 R19.8(Not Applicable) - Killian Gill MD s Colonoscopy 73079 Z86.010(Not Applicable) - Killian Gill MD Was Beta Page taken within 24 hours: N/A Was Clonidine taken within 24 hours: N/A Last intake: Intake Last Liquid Date 02/01/21 Last Liquid Time 00:00 Last Solid Date 01/31/21 Last Solid Time 00:00 Social: Social History: No alcohol and No tobacco Exam: Pre-Anes Outpt Exam: alert, oriented x 3 and regular rate & rhythm Airway: Submandibular: WNL Cervical ROM: WNL MP: 2 Dentition: Chipped Additional comments: Very poor dentition Pulmonary: Pulmonary: Asthma and COPD GI: GI: GERD Neuropsych: Neuropsych: Anxiety and Depression Anesthetic Plan: ASA status: 3 Anesthesia: MAC Risk of > 500 ml blood loss (7ml/kg in children): No Meds/Allergies Current Medications: Current Medications Generic Name Dose Route Start Last Admin Trade Name Freq PRN Reason Stop Dose Admin Sodium Chloride 1,000 mls @ 30 ml s/hr 02/02/21 08:45 02/02/21 09:20 Sodium Chloride 0.9% IV 02/03/21 08:44 30 mls/hr .Q24H FERNANDO Administration PFSH Anesthesia PFSH: Medical History Cystitis cystica Dyspareunia Generalized anxiety disorder GERD (gastroesophageal reflux disease) Microscopic hematuria Mixed urinary incontinence due to female genital prolapse Ophthalmoplegic migraine, not intractable Periurethral cyst PTSD (post-traumatic stress disorder) [place]'s gland abscess [place] gland removed--04/10/2019 Urethrovaginal fistula Urinary frequency Urinary urgency Surgical History History of tonsillectomy History of tubal ligation Family History Mother Hypertension Diabetes Cancer lung and bone cancer Grandfather CAD (coronary artery disease) Maternal Hypertension Maternal Stroke, Onset Age: 50 Maternal Cancer Paternal--brain cancer twice Father Cancer bladder cancer Grandmother Diabetes Maternal Denies family history of Clotting disorder Chronic kidney disease (CKD) Bleeding disorder Social History Alcohol intake: never Marital status: Current occupational status: unemployed History of recent travel: No Female Reproductive History: Date of last menstrual period: 11/02/20 Data Anesthesia Cardiac Studies: No Data to Display
[2021-02-02 11:13] VITALS: BP 88/49; PULSE 76; RESP 16; TEMP 36.1; O2SAT 98
[2021-02-02 11:42] VITALS: BP 117/80; PULSE 78; RESP 16; O2SAT 100
--- NOTE | 2021-02-02 11:54 | ANE.PACU2 ---
Inpatient post-anesthesia follow up: Airway intact: Yes Vital signs: Temperature 97 F Pulse Rate 78 Respiratory Rate 16 Blood Pressure 117/80 Pulse Oximetry 100 Oxygen Delivery Me thod Room Air Oxygen Flow Rate Fraction of Inspir ed Oxygen Hydration adequate: Yes Mental status: Baseline
== END 2021-02-02 11:55 | disposition home or self-care (01) ==
PROVIDERS: PCP Nurse Practitioner; Visit Provider Internal Medicine
PROC: 0DJ08ZZ Inspection of Upper Intestinal Tract, Via Natural or Artificial Opening Endoscopic (ICD-10-PCS; CPT 43235; principal; 2021-02-02 09:45)
PROC: 0DJD8ZZ Inspection of Lower Intestinal Tract, Via Natural or Artificial Opening Endoscopic (ICD-10-PCS; CPT 45378; 2021-02-02 09:45)
DX: R12 Heartburn (principal); K22.2 Esophageal obstruction; Z86.010 Personal history of colon polyps; Z88.5 Allergy status to narcotic agent
CPT/HCPCS: 43235; 45378; 96360; 96361; J2704; J7030

== ENCOUNTER → 2021-02-03 15:27 | Outpatient (BNVA) | payer MEDICAID, SELFPAY | PROVIDERS: PCP Nurse Practitioner; Visit Provider Obstetrics & Gynecology | DX: N81.10 Cystocele, unspecified (principal) | CPT/HCPCS: 76830 ==

== ENCOUNTER → 2021-02-20 14:59 | Outpatient (BNVA) | payer MEDICAID, SELFPAY | PROVIDERS: PCP Nurse Practitioner; Visit Provider Obstetrics & Gynecology | DX: N81.4 Uterovaginal prolapse, unspecified (principal); R10.2 Pelvic and perineal pain | CPT/HCPCS: 87635 ==

== ENCOUNTER 2021-02-24 10:07 | Observation (INO) | payer MEDICAID, SELFPAY ==
[2021-02-23 14:07] VITALS: BMI 36.2
[2021-02-24] VITALS (14 sets, daily range): BP systolic 119–148; BP diastolic 52–97; PULSE 68–88; RESP 14–24; TEMP 36.7–37.2; O2SAT 93–100
[2021-02-24] MEDS: sodium chloride 0.9% 1,000 ML 30 ML IV (06:26)
[2021-02-24] MEDS: acetaminophen 1,000 MG/100 ML PIGGYBACK 400 MG IV (06:26)
[2021-02-24] MEDS: gabapentin 300 mg Capsule PO (06:42)
[2021-02-24] MEDS: phenazopyridine 100 mg Tablet 200 MG PO ×2 (06:42→18:00)
[2021-02-24] MEDS: CELEcoxib 200 mg Capsule 400 MG PO (06:42)
--- NOTE | 2021-02-24 06:54 | P.ANESASSM_ITS ---
Pre-Anesthetic Assessment Pre-Anesthetic Assessment: Height/Weight: Height 1.57 m Weight 89.811 kg Temp Pulse Pulse Ox 98.1 F 81 100 02/24/21 06:26 02/24/21 06:26 02/24/21 06:26 Preop Diagnosis: Uterine prolapse Proposed Procedure: Operation Date: 02/24/21 07:00 Proposed Procedures p Laparoscopic Assist Vaginal Hysterectomy 13027 N81.4 R10.2(Not Applicable) - Lorna Mack MD s Laparoscopic Salpingectomy(Bilateral) - Lorna Mack MD Was Beta Page taken within 24 hours: N/A Was Clonidine taken within 24 hours: N/A Last intake: Intake Last Liquid Date 02/23/21 Last Liquid Time 23:30 Last Solid Date 02/23/21 Last Solid Time 18:00 Social: Social History: Tobacco Packs per day: 0.5 to 1 PPD Pack years: Can't remember how long Exam: Pre-Anes Outpt Exam: alert, oriented x 3, clear to auscultation bilaterally and regular rate & rhythm Airway: Submandibular: WNL Cervical ROM: WNL MP: 3 Dentition: Partials History/ROS: No significant history except as noted Pulmonary: Pulmonary: COPD and ARREDONDO CV/HEM: Comments: ARREDONDO less than 4 METS : Comments: Urethrovaginal fistula, cystitis, urinary frequency Hepatic: Hepatic: None reported GI: GI: GERD Metabolic: Metabolic: None reported Musc/skel: Musc/skel: None reported Neuropsych: Comments: PTSD Anesthetic Plan: ASA status: 3 (Daily smoker with ARREDONDO) Anesthesia: An esthesia Evaluation and General Risk of > 500 ml blood loss (7ml/kg in children): No Meds/Allergies Current Medications: Current Medications Generic Name Dose Route Start Last Admin Trade Name Freq PRN Reason Stop Dose Admin Sodium Chloride 1,000 mls @ 30 ml s/hr 02/24/21 06:00 02/24/21 06:26 Sodium Chloride 0.9% IV 02/25/21 05:59 30 mls/hr .Q24H FERNANDO Administration PFSH Anesthesia PFSH: Medical History Cystitis cystica Dyspareunia Generalized anxiety disorder GERD (gastroesophageal reflux disease) Microscopic hematuria Mixed urinary incontinence due to female genital prolapse Ophthalmoplegic migraine, not intractable Periurethral cyst PTSD (post-traumatic stress disorder) [place]'s gland abscess [place] gland removed--04/10/2019 Urethrovaginal fistula Urinary frequency Urinary urgency Surgical History History of tonsillectomy History of tubal ligation Family History Mother Hypertension Diabetes Cancer lung and bone cancer Grandfather CAD (coronary artery disease) Maternal Hypertension Maternal Stroke, Onset Age: 50 Maternal Cancer Paternal--brain cancer twice Father Cancer bladder cancer Grandmother Diabetes Maternal Denies family history of Clotting disorder Chronic kidney disease (CKD) Bleeding disorder Social History Alcohol intake: never Marital status: Current occupational status: unemployed History of recent travel: No Female Reproductive History: Date of last menstrual period: 02/17/21 Data Anesthesia Cardiac Studies: No Data to Display
[2021-02-24 07:00] LABS: OR HCG Qualitative Urine Negative (Negative)
--- NOTE | 2021-02-24 07:03 | W.PM.OPSUD ---
Surgery/Procedure H&P Update DATE OF PROCEDURE: February 24, 2021 DATE H&P PERFORMED: 01/22/21 H&P UPDATE INFORMATION: I have reviewed H&P completed within last 30 days, I have examined patient prior to procedure and No changes to prior documentation PREOP DIAGNOSIS: Uterine prolapse PLANNED PROCEDURE: Operation Date: 02/24/21 07:00 Proposed Procedures p Laparoscopic Assist Vaginal Hysterectomy 29647 N81.4 R10.2(Not Applicable) - Lorna Mack MD s Laparoscopic Salpingectomy(Bilateral) - Lorna Mack MD Related Problem List Diagnoses (1) Uterine prolapse: (2) Painful defecation: (3) Mixed urinary incontinence due to female genital prolapse: (4) Urethrovaginal fistula:
[2021-02-24 07:33] LABS: Basophils # 0.1 10^3/uL (0.0-0.1); Basophils % 0.4 %; Eosinophils # 0.5 10^3/uL (0.0-0.8); Eosinophils % 3.1 %; Hematocrit 40.3 % (37.0-47.0); Hemoglobin 13.2 g/dL (11.5-15.3); Lymphocytes % 47.7 %; Mean Corpuscular HGB Conc 32.8 g/dL (30.0-36.0); Mean Corpuscular Hemoglobin 29.9 pg (28.0-34.0); Mean Corpuscular Volume 91.4 fl (81-99); Mean Platelet Volume 10.4 fL (7.4-10.4); Monocytes # 0.9 10^3/uL (0.2-0.9); Monocytes % 5.9 %; Neutrophils # 6.22 10^3/uL (1.8-7.7); Neutrophils % 42.6 %; Nucleated Red Blood Cells % 0 %; Platelet Count 422 10^3/cmm (130-400); Red Blood Count 4.41 10^6/uL (4.1-5.3); Red Cell Distribution Width 13.6 % (12.1-15.1); White Blood Count 14.6 10^3/uL (4.0-10.0)
[2021-02-24 07:43] LABS: Anion Gap 17.2 (5-19); Blood Urea Nitrogen 12 mg/dL (6-20); Calcium 8.1 mg/dL (8.5-10.5); Carbon Dioxide 20 mmol/L (22-29); Chloride 105 mmol/L (98-107); Glomerular Filtration Rate 109.6 mL/min (90-130); Glucose 101 mg/dL (65-115); Osmolality Calculated 286 mOsm/kg (285-295); Potassium 4.2 mmol/L (3.5-5.1); Sodium 138 mmol/L (136-145)
[2021-02-24] MEDS: vasopressin 20 unit/mL INJ (08:18)
--- NOTE | 2021-02-24 08:19 | SUR.OPER ---
Called and notified him or surgical start and progress.
--- NOTE | 2021-02-24 10:20 | P.OP_ITS ---
Operative Report Date of procedure: February 24, 2021 Pre-op Diagnosis: Uterine prolapse Post-op diagnosis: same Post-op Diagnosis: loose perineal body Post-op Findings: 8 week sized uterus, normal appearing tubes and ovaries with obvious previous tubal ligation. proximal urethral fistula. (area of previous skene's gland removal goes all the way to urethra and harrington catheter is visible) Loose perineal body. grade 1-2 rectocele, grade 1 cystocele. Procedure Done: laparoscopic assisted vaginal hysterectomy with bilateral salpingectomy and perineorrhaphy. Specimens removed/disposition: uterus and bilateral fallopian tubes sent to pathology Surgeon: Lorna Mack Anesthesia: General Estimated blood loss (mL): 50 IV fluids (mL): 1,700 Urine output (mL): 100 Complications: none Findings: 8 week sized uterus, normal appearing tubes and ovaries with obvious previous tubal ligation. proximal urethral fistula. (area of previous skene's gland removal goes all the way to urethra and harrington catheter is visible) Loose perineal body. grade 1-2 rectocele, grade 1 cystocele. Condition: stable Disposition: floor Procedure: The patient was taken to the operating room where general anesthesia was administered and found to be adequate. She was prepped and draped in the normal sterile fashion in the dorsal lithotomy position in [facility]. A Harrington catheter was placed. A weighted speculum was placed into the vagina and the anterior lip of the cervix was grasped with a single tooth tenaculum. The Zumi uterine manipulator was placed. The weighted speculum was removed. The gloves were changed and attention was turned to the abdomen. A 5 mm infraumbilical incision was made. Using a 5 mm port with the camera, the port was placed into the abdomen. The abdomen was insufflated. Two low, lateral 5 mm ports were placed on the left and right under direct visualization from the camera. The right tube was grasped and elevated. Using the laparoscopic cautery, the mesosalpinx was divided between the ovary and tube. The tube was removed. This was performed the same way on the left. The uteroovarian ligaments as well as the round ligaments were ligated. Attention was then turned to the vaginal portion of the procedure. The weighted speculum was placed into the vagina. The zumi manipulator was removed. The single tooth tenaculum was removed and replaced with the carly's tenaculum. 10 mL of dilute Pitressin was injected at the vesicovaginal junction. A circumferential incision was made at the vesicovaginal junction and the vaginal mucosa reflected cephalad. The posterior peritoneum was entered sharply with the Metzenbaum scissors and the long weighted speculum replaced. Using the Tara clamps the uterosacral ligaments were clamped cut and suture- ligated. The anterior peritoneum was entered sharply with the metzenbaum scissors. Then sequentially the uterine arteries and cardinal ligaments were clamped cut and suture-ligated. A single-tooth tenaculum was used to deliver the uterus. The remaining segement of the utero-ovarian ligaments were clamped cut and suture-ligated bilaterally and the specimen was removed. There was good hemostasis with only mild bleeding from the cuff. The peritoneum was closed with a pursestring using 2-0 Vicryl. The vaginal cuff was closed with 0 Vicryl in a running locked pattern incorporating the uterosacral ligaments into the lateral aspects of the vaginal cuff. The Harrington catheter was removed and the cystoscope advanced into the bladder. The patient was given pyridium and bilateral spill was noted. There were no injuries or deficits noted in the bladder. The cystoscope was removed and the Harrington was replaced. Attention was then turned to the perineorrhphy. Allis clamps were placed on the posterior fourchette. A 3 cm wedge of the fourchette was removed. This was repaired in the usual fashion with O-vicryl. Vaginal packing was placed. The patient tolerated the procedure well. Sponge, lap and needle counts were correct times three. She was taken to the recovery room in stable condition.
[2021-02-24] MEDS: fentaNYL 50 mcg/mL INJ 2mL IVP ×2 (10:25→10:30)
[2021-02-24] MEDS: scopolamine 1.5 Patch 1 PATCH TRANSDERMA (10:29)
[2021-02-24] MEDS: dextrose 5%-lactated ringers 1,000 ML 125 ML IV (12:21)
[2021-02-24] MEDS: oxyCODONE-APAP 5-325 mg Tablet 1 TAB PO (15:06)
--- NOTE | 2021-02-24 15:42 | ANE.PACU2 ---
Inpatient post-anesthesia follow up: Vital signs: Temperature 98.9 F Pulse Rate 77 Respiratory Rate 18 Blood Pressure 121/78 Pulse Oximetry 95 Oxygen Delivery Me thod Room Air Oxygen Flow Rate 8 Fraction of Inspir ed Oxygen Hydration adequate: Yes Nausea and vomiting: No Pain level: 4
[2021-02-24] MEDS: ketorolac 30 mg/mL INJ IVP (18:00)
[2021-02-24] MEDS: docusate sodium 100 mg Capsule PO (20:37)
[2021-02-25] MEDS: ketorolac 30 mg/mL INJ IVP (00:13)
[2021-02-25 04:42] VITALS: BP 118/71; PULSE 83; RESP 14; O2SAT 97
[2021-02-25 04:44] LABS: Hemoglobin 12.9 g/dL (11.5-15.3); Mean Corpuscular HGB Conc 32.3 g/dL (30.0-36.0); Mean Corpuscular Hemoglobin 29.5 pg (28.0-34.0); Mean Corpuscular Volume 91.5 fl (81-99); Mean Platelet Volume 9.8 fL (7.4-10.4); Platelet Count 384 10^3/cmm (130-400); Red Blood Count 4.37 10^6/uL (4.1-5.3); Red Cell Distribution Width 13.6 % (12.1-15.1); White Blood Count 21.5 10^3/uL (4.0-10.0)
--- NOTE | 2021-02-25 08:53 | P.DS_ITS ---
Discharge Providers Date of Admission: 02/24/21 10:07 Date of Discharge: February 25, 2021 Attending Provider at Admission: Lorna Mack MD Attending Provider at Discharge: Lorna Mack MD Primary Care Provider: ANGELICA Rushing Diagnoses at Discharge Discharge Diagnosis (1) Uterine prolapse: Status: Acute (2) Painful defecation: Status: Acute (3) Mixed urinary incontinence due to female genital prolapse: Status: Acute (4) Urethrovaginal fistula: Status: Acute Reason for Visit Reason for Visit: Uterine prolapse Hospital Course Hospital Course The patient was admitted for surgery. She did well postoperatively and was ready for discharge on day #1 Physical Exam 2 Narrative: EXAM NARRATIVE: The patient is doing well this morning. Pain is well controlled. Packing has been removed. Const: COMMON NORMALS: no acute distress, patient oriented x3, no limitations, healthy appearing, alert and well nourished GENERAL APPEARANCE: cooperative, comfortable, well kempt and well developed ORIENTATION/CONSCIOUSNESS: Yes awake, Yes oriented to person, Yes oriented to place and Yes oriented to time Resp: COMMON NORMALS: normal respiratory effort EFFORT & INSPECTION: Yes able to speak in complete sentences GI: COMMON NORMALS: Soft to palpation and non-tender PALPATION: Yes Soft to palpation : COMMON NORMALS: Yes normal external appearance and Yes normal appearance of the vagina Extremity: COMMON NORMALS: no calf tenderness Neuro: COMMON NORMALS: patient oriented x3 SENSORIUM/ORIENTATION: Yes alert, Yes oriented to person, Yes oriented to place and Yes oriented to time Psych: APPEARANCE: Yes well kempt Urinary Catheter Management^: Tate: Cath Placed During This Visit: yes, but has since been removed by the nurse Reason for Continuing Indwelling Catheter: Decision to DC Catheter Urinary Catheter Date of Insertion: 02/24/21 Urinary Catheter Time of Insertion: 07:54 Date Urinary Catheter Removed: 02/25/21 Time Urinary Catheter Discontinued: 04:30 Discharge Data Data Completed and Pending: Pending at discharge Category Date Time Status ES surgery / GI i mages Routine Exams 02/24/21 06:49 Taken Comprehensive Met abolic Panel AM BRIGETTE SCHULTZ Lab 02/25/21 04:00 Ordered Urine Culture Rou josefina Lab 02/24/21 06:20 Received Pathology: Surgic al [PTH] Routine Pth 02/24/21 10:15 Received Labs from last 24 hours 02/25/21 04:35 WBC 21.5 H RBC 4.37 Hgb 12.9 Hct 40.0 MCV 91.5 MCH 29.5 MCHC 32.3 RDW 13.6 Plt Count 384 MPV 9.8 Vitals: Last Vital Signs Temp 98.2 F 02/24/21 18:05 Pulse 83 02/25/21 04:42 Resp 14 02/25/21 04:42 BP 118/71 02/25/21 04:42 Pulse Ox 97 02/25/21 04:42 Discharge Plan Discharge Patient Disposition: Home Condition: Stable Prescriptions: New ibuprofen 800 mg Tablet 800 mg PO Q8H Qty: 30 RF: 0 oxycodone-acetaminophen 5-325 mg Tablet 1 tab PO Q4H PRN (Reason: Moderate Pain) Qty: 30 RF: 0 docusate sodium 100 mg Capsule 100 mg PO BID Qty: 60 RF: 0 Continued acetaminophen 500 mg capsule 500 mg PO Q6H PRN (Reason: Pain) RF: 0 Zyrtec 10 mg capsule 10 mg PO DAILY PRN (Reason: Allergy Symptoms) RF: 0 diphenhydramine HCl [Benadryl] 25 mg capsule 25 mg PO TID PRN (Reason: unknown) RF: 0 gabapentin 300 mg capsule 600 mg PO TID PRN (Reason: pain) RF: 0 cholecalciferol (vitamin D3) 625 mcg (25,000 unit) capsule 625 mcg PO .weekly RF: 0 albuterol sulfate 90 mcg/actuation HFA aerosol inhaler 2 puff inhalation Q6H PRN (Reason: Shortness Of Breath) RF: 0 Discharge Orders: Discharge Order (Routine); Ordered 02/25/21 Ordered By: Lorna Mack Patient Instructions: Opioid Safety Discharge Attestations Time Spent in Discharge Care*: less than 30 min Quality Metrics Clinical Quality Measures During this hospital stay, did patient experience: None Coding Level of Care Code Acute Chg FW MO note Diagnoses Uterine prolapse N81.4 Painful defecation R19.8 Mixed urinary incontinence due to female genital prolapse N39.46; N81.9 Urethrovaginal fistula N82.1
[2021-02-25 09:45] VITALS: BP 122/74; PULSE 75; RESP 17; TEMP 36.7; O2SAT 95
[2021-02-25 09:50] VITALS: RESP 16; O2SAT 95
[2021-02-25] MEDS: oxyCODONE-APAP 5-325 mg Tablet 1 TAB PO (09:50)
[2021-02-25] MEDS: ibuprofen 800 mg tablet PO (09:51)
== END 2021-02-25 09:55 | disposition home or self-care (01) ==
LOC: OBGYN 10:08
PROVIDERS: Admitting Provider Obstetrics & Gynecology; PCP Nurse Practitioner; Visit Provider Obstetrics & Gynecology
PROC: 0UT9FZZ Resection of Uterus, Via Natural or Artificial Opening With Percutaneous Endoscopic Assistance (ICD-10-PCS; CPT 56810; principal; 2021-02-24 07:00)
PROC: (CPT 58661; 2021-02-24 07:00)
DX: N82.1 Other female urinary-genital tract fistulae (principal); N81.9 Female genital prolapse, unspecified; N81.4 Uterovaginal prolapse, unspecified; N30.90 Cystitis, unspecified without hematuria; R10.2 Pelvic and perineal pain; N39.46 Mixed incontinence; R19.8 Other specified symptoms and signs involving the digestive system and abdomen; J44.9 Chronic obstructive pulmonary disease, unspecified; F43.10 Post-traumatic stress disorder, unspecified; F17.210 Nicotine dependence, cigarettes, uncomplicated
CPT/HCPCS: 56810; 58552; 36415; 80048; 81025; 84703; 85025; 85027; 87086; 88305; 96365; G0378; J0690; J1100; J1170; J1200; J1885; J2250; J2405; J2704; J2710; J3010; J3490; J7030

== ENCOUNTER 2021-03-01 19:11 | Emergency (ER) | payer MEDICAID, SELFPAY ==
[2021-03-01 19:32] VITALS: BP 127/79; PULSE 85; RESP 18; TEMP 36.7; O2SAT 98; BMI 36.6
[2021-03-01 19:36] VITALS: BP 127/79; PULSE 80; RESP 18; TEMP 36.7; O2SAT 98
--- NOTE | 2021-03-01 19:37 | ECG_ITS ---
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 Measurements Intervals [place] Rate: 55 P: 58 [place]: 145 QRS: 53 QRSD: 93 T: 51 QT: 410 QTc: 395 Interpretive Statements SINUS BRADYCARDIA Compared to ECG 11/14/2020 00:45:40 Sinus rhythm no longer present Electronically Signed On 03-02-2021 20:44:48 PRINT BINDING WORKER by Marcelina Gilbert M.D. [id number] f
[2021-03-01 19:47] LABS: Basophils # 0.1 10^3/uL (0.0-0.1); Basophils % 0.3 %; Eosinophils # 0.5 10^3/uL (0.0-0.8); Hemoglobin 13.4 g/dL (11.5-15.3); Lymphocytes # 5.6 10^3/uL (0.8-4.8); Lymphocytes % 36.7 %; Mean Corpuscular HGB Conc 32.7 g/dL (30.0-36.0); Mean Corpuscular Hemoglobin 29.5 pg (28.0-34.0); Mean Corpuscular Volume 90.3 fl (81-99); Mean Platelet Volume 9.7 fL (7.4-10.4); Monocytes # 1.1 10^3/uL (0.2-0.9); Monocytes % 7.3 %; Neutrophils # 7.98 10^3/uL (1.8-7.7); Neutrophils % 52.4 %; Nucleated Red Blood Cells % 0 %; Platelet Count 449 10^3/cmm (130-400); Red Blood Count 4.54 10^6/uL (4.1-5.3); Red Cell Distribution Width 13.9 % (12.1-15.1); White Blood Count 15.2 10^3/uL (4.0-10.0)
[2021-03-01 20:01] LABS: Troponin(5th) Baseline 6 ng/L (0-10)
[2021-03-01 20:02] LABS: Alanine Aminotransferase 17 U/L (0-33); Albumin Level 3.9 g/dL (3.5-5.2); Alkaline Phosphatase 88 IU/L (35-105); Anion Gap 16.1 (5-19); Aspartate Amino Transferase 11 U/L (0-32); Blood Urea Nitrogen 11 mg/dL (6-20); Calcium 8.8 mg/dL (8.5-10.5); Carbon Dioxide 22 mmol/L (22-29); Chloride 104 mmol/L (98-107); Globulin 2.2 g/dL (1.3-4.6); Glomerular Filtration Rate 109.6 mL/min (90-130); Glucose 87 mg/dL (65-115); Osmolality Calculated 285 mOsm/kg (285-295); Potassium 4.1 mmol/L (3.5-5.1); Sodium 138 mmol/L (136-145); Total Bilirubin 0.2 mg/dL (0.15-1.2); Total Protein 6.1 g/dL (6.6-8.7)
--- NOTE | 2021-03-01 20:06 | ED_ITS ---
HPI - Chest Pain General: Chief Complaint: Chest Pain Stated Complaint: Chest Pains\Dizzy\N\Headache Time Seen by Provider: 03/01/21 19:52 History of Present Illness: HPI narrative: Patient is a 40-year-old female comes to the ED with chest pain. Patient says symptoms started approximately 3 days ago. Says she was laying down after she had a meal and she felt the pain in the center part of her chest and it radiated to her back. The pain has been pretty consistent since it started 3 days ago and she denies any worsening or relieving factors. She says the chest pain also has a feeling of some chest tightness especially with breathing. Patient did just have a hysterectomy done approximately 5 days ago and is been resting since surgery. Patient admits to being a daily tobacco smoker. Associated symptoms: Reports dyspnea; Deny abdominal pain, fever(s), nausea, palpitations or vomiting Review of Systems Const: Denies: fever(s), chills or fatigue Eyes: Denies: change in vision or eye discomfort ENMT: Denies: throat pain, odynophagia, nasal discharge or nasal congestion Card: Reports: chest pain; Denies: palpitations, edema, swelling of feet/ankles, dyspnea on exertion or orthopnea Resp: Reports: dyspnea; Denies: productive cough or non-productive cough GI: Denies: abdominal pain, nausea, vomiting, diarrhea, constipation or hematochezia : Denies: flank pain, dysuria or hematuria Musc: Denies: neck pain, back pain or extremity swelling Skin/Breast: Denies: rash or new lesions Neuro: Denies: headache(s), numbness in extremities or weakness in extremities [facility] ED PFSH: Medical History Cystitis cystica Dyspareunia Generalized anxiety disorder GERD (gastroesophageal reflux disease) Microscopic hematuria Mixed urinary incontinence due to female genital prolapse Ophthalmoplegic migraine, not intractable Periurethral cyst PTSD (post-traumatic stress disorder) [place]'s gland abscess [place] gland removed--04/10/2019 Urethrovaginal fistula Urinary frequency Urinary urgency Surgical History History of tonsillectomy History of tubal ligation Family History Mother Hypertension Diabetes Cancer lung and bone cancer Grandfather CAD (coronary artery disease) Maternal Hypertension Maternal Stroke, Onset Age: 50 Maternal Cancer Paternal--brain cancer twice Father Cancer bladder cancer Grandmother Diabetes Maternal Denies family history of Clotting disorder Chronic kidney disease (CKD) Bleeding disorder Social History Alcohol intake: never Marital status: Current occupational status: unemployed History of recent travel: No Female Reproductive History: Date of last menstrual period: 02/17/21 Physical Exam Const: COMMON NORMALS: no acute distress, patient oriented x3 and alert GENERAL APPEARANCE: cooperative and comfortable HENMT: COMMON NORMALS: normocephalic HEAD & SCALP: normocephalic MOUTH: Normal oral and palatal mucosa present THROAT: posterior oropharynx normal and uvula midline Neck/C-Spine: COMMON NORMALS: supple GENERAL: Yes normal visual inspection Resp: COMMON NORMALS: normal respiratory effort, No retractions, No use of accessory muscles and clear to auscultation bilaterally AUSCULTATION: clear to auscultation bilaterally Cardio: COMMON NORMALS: regular rate, regular rhythm, S1 normal heart sound present, S2 normal heart sound present, No gallops present (Cardio), No clicks present (Cardio), No murmurs present (Cardio) and Peripheral pulses 2+ throughout RATE: regular rate RHYTHM: regular rhythm HEART SOUNDS: S1 normal heart sound present and S2 normal heart sound present PERIPHERAL PULSES: Peripheral pulses 2+ throughout GI: COMMON NORMALS: Normal to inspection, nondistended, normoactive bowel sounds present, Soft to palpation, non-tender and no masses PALPATION: Yes Soft to palpation : COMMON NORMALS: Yes no CVA tenderness BLADDER/KIDNEY EXAM: Yes no CVA tenderness Back/Pelvis: COMMON NORMALS: no CVA tenderness Extremity: COMMON NORMALS: normal to inspection Neuro: COMMON NORMALS: patient oriented x3 and moves all extremities SENSORIUM/ORIENTATION: Yes alert Skin: GENERAL SKIN EXAM: dry skin Course Vital Signs: Vital signs: Vital Signs Temperature 98.1 F 03/01/21 19:36 Pulse Rate 71 03/01/21 22:10 Respiratory Rate 16 03/01/21 22:10 Blood Pressure 135/71 03/01/21 22:10 Pulse Oximetry 98 12/12/21 22:10 MDM - Chest Pain MDM Narrative: Medical decision making narrative: Patient is a 40-year-old fe male comes to the ED with chest pain. Symptoms started approximately 3 days ago. Patient just had a hysterectomy approximately 5 days ago and has been resting and healing since. Vitals stable. Exam is benign. White blood cell count 15.2 but that has decreased from her last white blood cell count of 21.5 on eighth. Rest of CBC and CMP was unremarkable. Troponin negative. D-dimer was normal. EKG showed no ST segment elevation or depression with normal sinus rhythm. Patient's chest pain did improve after getting some morphine and GI cocktail here in the ED. Patient was diagnosed with atypical chest pain I placed an order with case management for patient to receive a outpatient cardiac stress test. Patient she was told to follow-up with her PCP in 5 to 7 days reevaluation, and she has a postsurgical follow-up early this week. Return to ED precautions given. Patient stood agree with plan. Lab Data: Attestation: I reviewed the patient's lab results. Labs: Lab Results 03/01/21 03/01/21 03/01/21 19:30 19:30 19:30 WBC 15.2 10^3/uL H 10 ^3/uL (4.0-10.0) RBC 4.54 10^6/uL 10^6 /uL (4.1-5.3) Hgb 13.4 g/dL g/dL (11.5-15.3) Hct 41.0 % % (37.0-47.0) MCV 90.3 fl fl (81-99) MCH 29.5 pg pg (28.0-34.0) MCHC 32.7 g/dL g/dL (30.0-36.0) RDW 13.9 % % (12.1-15.1) Plt Count 449 10^3/cmm H 10 ^3/cmm (130-400) MPV 9.7 fL fL (7.4-10.4) Neut % (Auto) 52.4 % % Lymph % (Auto) 36.7 % % [place] % (Auto) 7.3 % % Eos % (Auto) 3.0 % % Baso % (Auto) 0.3 % % Neut # (Auto) 7.98 10^3/uL H 10 ^3/uL (1.8-7.7) Lymph # (Auto) 5.6 10^3/uL H 10^ 3/uL (0.8-4.8) [place] # (Auto) 1.1 10^3/uL H 10^ 3/uL (0.2-0.9) Eos # (Auto) 0.5 10^3/uL 10^3/ uL (0.0-0.8) Baso # (Auto) 0.1 10^3/uL 10^3/ uL (0.0-0.1) Nucleated RBC % (a uto) 0 % % Nucleated RBCs # 0.0 /100WBC /100W BC D-Dimer Sodium 138 mmol/L mmol/L (136-145) Potassium 4.1 mmol/L mmol/L (3.5-5.1) Chloride 104 mmol/L mmol/L (98-107) Carbon Dioxide 22 mmol/L mmol/L (22-29) Anion Gap 16.1 (5-19) BUN 11 mg/dL mg/dL (6-20) Creatinine 0.6 mg/dL mg/dL (0.5-0.9) GFR Calculation 109.6 mL/min mL/m in (90-130) Glucose 87 mg/dL mg/dL (65-115) Calculated Osmolal ity 285 mOsm/kg mOsm/ kg (285-295) Calcium 8.8 mg/dL mg/dL (8.5-10.5) Total Bilirubin 0.2 mg/dL mg/dL (0.15-1.2) AST 11 U/L U/L (0-32) ALT 17 U/L U/L (0-33) Alkaline Phosphata se 88 IU/L IU/L (35-105) Troponin T Baselin e 6 ng/L ng/L (0-10) Troponin T 120 Min jean Delta Troponin T Total Protein 6.1 g/dL L g/dL (6.6-8.7) Albumin 3.9 g/dL g/dL (3.5-5.2) Globulin 2.2 g/dL g/dL (1.3-4.6) Lipase 03/01/21 03/01/21 03/01/21 19:35 19:35 21:05 WBC RBC Hgb Hct MCV MCH MCHC RDW Plt Count MPV Neut % (Auto) Lymph % (Auto) [place] % (Auto) Eos % (Auto) Baso % (Auto) Neut # (Auto) Lymph # (Auto) [place] # (Auto) Eos # (Auto) Baso # (Auto) Nucleated RBC % (a uto) Nucleated RBCs # D-Dimer 0.48 ug/mIFEU ug/ mIFEU (0-0.59) Sodium Potassium Chloride Carbon Dioxide Anion Gap BUN Creatinine GFR Calculation Glucose Calculated Osmolal ity Calcium Total Bilirubin AST ALT Alkaline Phosphata se Troponin T Baselin e Troponin T 120 Min jean 6.00 ng/L ng/L (0-10) Delta Troponin T 0 ABS# ABS# (0-10) Total Protein Albumin Globulin Lipase 30 U/L U/L (13-60) EKG Data^: EKG 1: Attestation: I personally reviewed and interpreted this EKG as follows: EKG interpretation date: 03/01/21 Interpretation: Normal sinus rhythm, no ST segment elevation or depression seen. 84 bpm. EKG 2: Attestation: I personally reviewed and interpreted this EKG as follows: EKG interpretation date: 03/01/21 Interpretation: Sinus bradycardia, 55 bpm, no ST segment elevation or depression seen. Discharge Plan Discharge Patient Disposition: Home Clinical Impression: Atypical chest pain Condition: Stable Prescriptions: No Action acetaminophen 500 mg capsule 500 mg PO Q6H PRN (Reason: Pain) RF: 0 Zyrtec 10 mg capsule 10 mg PO DAILY PRN (Reason: Allergy Symptoms) RF: 0 diphenhydramine HCl [Benadryl] 25 mg capsule 25 mg PO TID PRN (Reason: unknown) RF: 0 gabapentin 300 mg capsule 600 mg PO TID PRN (Reason: pain) RF: 0 cholecalciferol (vitamin D3) 625 mcg (25,000 unit) capsule 625 mcg PO .weekly RF: 0 albuterol sulfate 90 mcg/actuation HFA aerosol inhaler 2 puff inhalation Q6H PRN (Reason: Shortness Of Breath) RF: 0 ibuprofen 800 mg Tablet 800 mg PO Q8H Qty: 30 RF: 0 oxycodone-acetaminophen 5-325 mg Tablet 1 tab PO Q4H PRN (Reason: Moderate Pain) Qty: 30 RF: 0 docusate sodium 100 mg Capsule 100 mg PO BID Qty: 60 RF: 0 Discharge Orders: Discharge ED (Routine); Ordered 03/01/21 Ordered By: Rafael Zuniga Referrals: Walker Dumas FNP [Primary Care Provider] - Discharge Diet: Regular Discharge Activity: Resume usual activity Patient Instructions: Chest Pain (ED), Noncardiac Chest Pain (ED) Activity Restrictions/Additional Instructions: Follow-up with medical provider at your next scheduled appointment this week. Continue taking all previously prescribed home medications. Return to the ER or your medical provider if condition worsens. Please read and understand discharge instructions. Thank you for choosing [facility] for your healthcare needs today. Please realize this is an emergency room and that we are providing you with a medical screening exam and this may not be complete and all inclusive of all the testing and or work up that you may need to determine your ailment or severity of your illness. It is very important that you follow up as instructed or that you return to the Emergency Department should you have concerns or if your condition changes or worsens in any way. Coding Level of Care Code ED Report Specialist for Staci Bill Exam Comprehensive
[2021-03-01 20:35] VITALS: RESP 20; O2SAT 99
[2021-03-01] MEDS: morphine 4 mg/mL SDV 1 mL IVP (20:35)
[2021-03-01] MEDS: ondansetron 2 mg/ML SDV 2 mL 4 MG IVP (20:35)
[2021-03-01 20:40] LABS: Lipase 30 U/L (13-60)
[2021-03-01 20:44] LABS: D Dimer 0.48 ug/mIFEU (0-0.59)
[2021-03-01 21:30] LABS: Troponin 5 2HR Delta 0 ABS# (0-10)
--- NOTE | 2021-03-01 21:37 | ECG_ITS ---
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 Measurements Intervals [place] Rate: 55 P: 58 OR: 145 QRS: 53 QRSD: 93 T: 51 QT: 410 QTc: 395 Interpretive Statements SINUS BRADYCARDIA Compared to ECG 11/14/2020 00:45:40 Sinus rhythm no longer present Electronically Signed On 03-02-2021 20:49:32 APPLIQUE CUTTER by Marcelina Gilbert M.D. [id number] f
[2021-03-01 22:10] VITALS: BP 135/71; PULSE 71; RESP 16; O2SAT 98
--- NOTE | 2021-03-05 06:56 | DCPLANNER ---
late entry - outpatient case manager had message to schedule an outpatient stress test for patient. manager global faxed signed order to centralized scheduling, who will call patient with appointment information.
--- NOTE | 2021-04-06 08:22 | DCPLANNER ---
Addendum entered by Nupur Spann 04/23/21 17:06: Patient had a follow up appointment scheduled for 04.15.21 for an outpatient stress test - patient did attend appointment. Original Note: Patient has an outpatient stress test scheduled for Tuesday, April 15, 2021 at 10:45. Centralized scheduling will call patient with appointment information.
== END 2021-03-01 22:11 | disposition home or self-care (01) ==
PROVIDERS: Emergency Provider Physician Assistant; PCP Nurse Practitioner
DX: R07.89 Other chest pain (principal)
CPT/HCPCS: 36415; 80053; 83690; 84484; 85025; 85378; 93005; 96374; 96375; 99284; J2270; J2405

== ENCOUNTER → 2021-04-01 08:33 | Outpatient (BNVA) | payer MEDICAID, SELFPAY | PROVIDERS: PCP Nurse Practitioner; Visit Provider Anesthesiology Pain Medicine | DX: G89.29 Other chronic pain (principal); M48.062 Spinal stenosis, lumbar region with neurogenic claudication; M54.16 Radiculopathy, lumbar region; M47.816 Spondylosis without myelopathy or radiculopathy, lumbar region; M47.812 Spondylosis without myelopathy or radiculopathy, cervical region; F17.200 Nicotine dependence, unspecified, uncomplicated; Z79.891 Long term (current) use of opiate analgesic | CPT/HCPCS: 99205 ==

== ENCOUNTER 2021-04-01 09:35 | Outpatient (CLI) | payer MEDICAID, SELFPAY ==
--- NOTE | 2021-04-01 09:50 | XR_ITS ---
WS: [id number] CERVICAL SPINE 5 VIEWS HISTORY: M47.812 - Spondylosis without myelopathy or radiculopathy... COMPARISON: None available. TECHNIQUE: AP, oblique and lateral radiographs. Mild straightening and slight reversal of the lower cervical spine. Vertebral body heights are normal . Disc spaces are normal. No fracture. Disc spaces and vertebral body heights are well preserved. Tosha ral foramina are widely patent with no osteophytes or narrowing. No soft tissue abnormality. Lateral masses of C1 and C2 are aligned and the odontoid process is intact. XR/XR cervical spine 4-5V [id number] IMPRESSION: 1. Very mild straightening and reversal of the normal cervical lordosis. 2. No fracture. 3. No significant foraminal narrowing.
== END 2021-04-01 09:36 | disposition home or self-care (01) ==
PROVIDERS: PCP Nurse Practitioner; Visit Provider Anesthesiology Pain Medicine
DX: M47.812 Spondylosis without myelopathy or radiculopathy, cervical region (principal)
CPT/HCPCS: 72050

== ENCOUNTER → 2021-04-03 15:01 | Outpatient (BNVA) | payer MEDICAID, SELFPAY | PROVIDERS: PCP Nurse Practitioner; Visit Provider Obstetrics & Gynecology | DX: R31.9 Hematuria, unspecified (principal) | CPT/HCPCS: 81000; 87086 ==

== ENCOUNTER 2021-04-15 08:10 | Outpatient (CLI) | payer MEDICAID, SELFPAY ==
[2021-04-15 08:32] VITALS: BMI 35.6
--- NOTE | 2021-04-15 08:33 | ECG_ITS ---
[facility] Test Date: 2021-04-15 Pat Name: Sarai Vasquez Department: Room: Gender: Female Customer Logistics Manager: Jennifer Bhaktan : 1980 Requested By: Rafael Zuniga Order Number: [id number] Jyoce MD: Katerine Lemus M.D. Interpretive Statements NAME OF STUDY: LEXISCAN SESTAMIBI STRESS TEST INDICATION: Chest Pain PROCEDURE: At the baseline, the blood pressure was 152/86 mm Hg, oxygen saturation of 98% with a heart rate of 71 bpm. The electrocardiogram showed normal sinus rhythm, normal axis and normal EKG. The Lexiscan was infused over a period of 20 seconds. A total of 0.4 milligrams of Lexiscan was infused. The stress phase was continued for a total of 5 minutes. Heart rate at the end of the stress phase was 94 bpm, oxygen saturation of 97% with a blood pressure of 123/77 mm Hg. The EKG at the peak infusion revealed no significant ST-T wave changes. Sestamibi was injected 20 seconds after the Lexiscan infusion. Blood pressure at the end of the recovery phase was 130/75 mm Hg, oxygen saturation of 98% with a heart rate of 87 beats per minute. CONCLUSION: 1. Normal EKG response to LexiScan infusion. 2. No LexiScan induced chest pain or cardiac arrhythmia. 3. Normal blood pressure and heart rate response. 4. Sestamibi/sestamibi perfusion scan pending; see separate report. Electronically Signed On 05-13-2021 6:40:55 ICT BUSINESS DEVELOPMENT MANAGER by Katerine Lemus M.D. [id number]
--- NOTE | 2021-04-15 08:34 | NMCV_ITS ---
NM baltazar perf SPECT r/s* [id number] Sarai Vasquez Age: 40 Gender: F : 1980 Exam Date: 04/15/2021 09:29 Ordering Phys: Rafael Zuniga Technologist: BARON Winn Exam Location: [facility] Indications: CHEST PAIN STRESS TEST Please see separate stress test report in [facility] for full findings IMAGE PROTOCOL Rest/Stress 1 Lexiscan Day Radiopharmaceutical Dose (mCi) Administration Site Administered by Rest: Tc-99m 10.8 IV BARON Alexander Sestamibi Stress:Tc-99m 32.4 IV BARON Alexander Sestamibi Rest: 15-Apr-2021 60 Discovery 630 Stress: 15-Apr-2021 30 Discovery 630 0.4mg Lexiscan. Images obtained in supine and prone position. SPECT RESULTS Technical Quality: Excellent Raw Data Analysis: Normal Image Corrections: No attenuation or motion correction applied Summed Stress Score: 0 Summed Rest Score: 0 Summed Difference Score: 0 PERFUSION FINDINGS Fairly uniform color tracer uptake. No significant perfusion abnormalities. FUNCTIONAL RESULTS (calculated via Gated SPECT) Stress Image LV EF (%): 68 Stress EDV (mL):79 TID: 1.12 Stress ESV (mL):25 FUNCTIONAL FINDINGS: Segmental wall motion analysis revealing no gross wall motion normalities IMPRESSIONS 1. Unremarkable myocardial perfusion imaging. 2. Normal LV ejection fraction of 60%. 3. LV wall motion analysis revealing no gross wall motion normalities. 4. Normal LV volume. 5. Slightly elevated transient ischemic dilatation ratio of 1.12, may suggest endocardial ischemia. However the positive predictive value of these findings is limited in the absence of any other abnormal objective findings. Clinical correlation is recommended Dr Marcelina Gilbert MD FAC (Electronically Signed) Final Date: 15 April 2021 19:25 S
[2021-04-15] MEDS: regadenoson 0.4 Mg/5 ml Syringe IVP (10:36)
[2021-04-15 10:37] VITALS: BP 130/75; PULSE 91
== END 2021-04-15 08:11 | disposition home or self-care (01) ==
LOC: CDL 08:14
PROVIDERS: PCP Nurse Practitioner; Visit Provider Physician Assistant
DX: R07.9 Chest pain, unspecified (principal); R94.39 Abnormal result of other cardiovascular function study; G43.711 Chronic migraine without aura, intractable, with status migrainosus; G44.53 Primary thunderclap headache
CPT/HCPCS: 78452; 93017; 96116; 99204; 99205; A9500; J2785

== ENCOUNTER → 2021-05-08 13:21 | Outpatient (BNVA) | payer MEDICAID, SELFPAY | PROVIDERS: PCP Nurse Practitioner; Visit Provider Psychiatry & Neurology Psychiatry | DX: F43.12 Post-traumatic stress disorder, chronic (principal); F60.3 Borderline personality disorder; F33.2 Major depressive disorder, recurrent severe without psychotic features; F41.1 Generalized anxiety disorder | CPT/HCPCS: 99204 ==

== ENCOUNTER → 2021-05-11 11:59 | Outpatient (BNVA) | payer MEDICAID, SELFPAY | PROVIDERS: PCP Nurse Practitioner; Visit Provider Anesthesiology Pain Medicine | DX: G89.29 Other chronic pain (principal); M54.16 Radiculopathy, lumbar region; M47.816 Spondylosis without myelopathy or radiculopathy, lumbar region; M54.2 Cervicalgia; M25.551 Pain in right hip; M79.605 Pain in left leg; F41.1 Generalized anxiety disorder; F17.210 Nicotine dependence, cigarettes, uncomplicated | CPT/HCPCS: 99214 ==

== ENCOUNTER → 2021-06-08 10:29 | Outpatient (BNVA) | payer MEDICAID, SELFPAY | PROVIDERS: PCP Nurse Practitioner; Visit Provider Specialist | DX: G44.53 Primary thunderclap headache (principal); G43.711 Chronic migraine without aura, intractable, with status migrainosus; F41.1 Generalized anxiety disorder; R20.0 Anesthesia of skin; F17.210 Nicotine dependence, cigarettes, uncomplicated | CPT/HCPCS: 99214 ==

== ENCOUNTER → 2021-08-31 09:50 | Outpatient (BNVA) | payer MEDICAID, SELFPAY | PROVIDERS: PCP Nurse Practitioner; Referring Provider Specialist; Visit Provider Specialist | DX: R20.0 Anesthesia of skin (principal); R20.2 Paresthesia of skin | CPT/HCPCS: 95910; 95912 ==

== ENCOUNTER → 2021-09-15 12:53 | Outpatient (BNVA) | payer MEDICAID, SELFPAY | PROVIDERS: PCP Nurse Practitioner; Visit Provider Urology | DX: N82.1 Other female urinary-genital tract fistulae (principal); N39.3 Stress incontinence (female) (male); R10.2 Pelvic and perineal pain | CPT/HCPCS: 51798; 52000; 81003; 99213; 99214 ==